=== PATIENT | female | born 1965 | race Caucasian/White ===

== ENCOUNTER 2017-06-15 10:33 | Outpatient (CLI) | payer BC | END 2017-06-15 10:34 | disposition home or self-care (01) | LOC: BICRAD 10:33 | PROVIDERS: ATTEND Family Medicine | DX: R06.02 Shortness of breath (principal) | CPT/HCPCS: 71046 ==

== ENCOUNTER 2017-11-10 13:35 | Outpatient (CLI) | payer BC | END 2017-11-10 13:36 | disposition home or self-care (01) | LOC: BICULT 13:35 | PROVIDERS: ATTEND Family Medicine | DX: R22.1 Localized swelling, mass and lump, neck (principal) | CPT/HCPCS: 36415; 76536; 80053; 80061 ==

== ENCOUNTER 2018-03-01 08:08 | Outpatient (CLI) | payer BC | END 2018-03-01 08:09 | disposition home or self-care (01) | LOC: BICMAMMO 08:08 | PROVIDERS: ATTEND Family Medicine | DX: Z12.31 Encounter for screening mammogram for malignant neoplasm of breast (principal); Z80.3 Family history of malignant neoplasm of breast | CPT/HCPCS: 77063; 77067 ==

== ENCOUNTER 2018-04-21 13:32 | Outpatient (CLI) | payer BC ==
--- NOTE | 2018-04-21 15:37 | RAD ---
PA AND LATERAL VIEWS OF CHEST: Date: 04/21/18 HISTORY: Acute bronchitis. FINDINGS: The heart size is normal. The lungs are well expanded without focal areas of consolidation, pneumotho rax, vicky pulmonary edema, or pleural effusions. There is elevation of the right hemidiaphragm. Ther e are degenerative changes in the spine. IMPRESSION: No radiographic evidence of acute cardiopulmonary process. POS: [facility]
== END 2018-04-21 13:33 | disposition home or self-care (01) ==
LOC: BICRAD 13:32
PROVIDERS: ATTEND Family Medicine
DX: J20.9 Acute bronchitis, unspecified (principal)
CPT/HCPCS: 36415; 71046; 85025; 86710

== ENCOUNTER 2019-02-28 08:57 | Outpatient (CLI) | payer BC ==
--- NOTE | 2019-02-28 09:29 | RAD ---
KUB INDICATION: Hematuria with low back pain COMPARISON: None FINDINGS: Bowel gas: Nonspecific but without overt appearance of obstruction. Lung bases: Clear. Additional findings: There are small phleboliths within the lower pelvis. No suspicious calcification is evident. Osseous structures: No acute osseous abnormality is demonstrated. IMPRESSION: 1. No acute abnormality.
== END 2019-02-28 08:58 | disposition home or self-care (01) ==
LOC: BICRAD 08:57
PROVIDERS: ATTEND Family Medicine
DX: R31.9 Hematuria, unspecified (principal)
CPT/HCPCS: 74018

== ENCOUNTER 2019-03-03 14:05 | Outpatient (CLI) | payer BC ==
--- NOTE | 2019-03-03 15:49 | MMO ---
Bilateral MAMMO Bilat Screen [facility]. CLINICAL HISTORY: Patient is 54 years old and is seen for screening. The patient has the following family history of breast cancer: maternal aunt, malignant (generic). The patient has no personal history of cancer. The patient has a history of right Excisional Biopsy in 2016 - benign. VIEWS: The views performed were: bilateral craniocaudal with tomosynthesis and bilateral mediolateral oblique with tomosynthesis. FILMS COMPARED: The present examination has been compared to prior imaging studies performed at [facility] on 11/19/2015, 08/13/2016, 02/05/2017 and 03/01/2018. This study has been interpreted with the assistance of computer-aided detection. MAMMOGRAM FINDINGS: The breasts are heterogeneously dense, which could obscure a lesion on mammography. There is a stable post-surgical scar seen in the right breast. There are no suspicious masses, suspicious calcifications, or new areas of architectural distortion. IMPRESSION: THERE IS NO MAMMOGRAPHIC EVIDENCE OF MALIGNANCY. A ROUTINE FOLLOW-UP MAMMOGRAM IN 1 YEAR IS RECOMMENDED. THE RESULTS OF THIS EXAM WERE SENT TO THE PATIENT. ACR BI-RADS Category 2 - Benign finding MAMMOGRAPHY NOTE: 1. A negative mammogram report should not delay a biopsy if a dominant of clinically suspicious mass is present. 2. Approximately 10% to 15% of breast cancers are not detected by mammography. 3. Adenosis and dense breasts may obscure an underlying neoplasm. Reported by: DELORES BOYCE MD Electonically Signed: [id number]
== END 2019-03-03 14:06 | disposition home or self-care (01) ==
LOC: BICMAMMO 14:05
PROVIDERS: ATTEND Family Medicine
DX: Z12.31 Encounter for screening mammogram for malignant neoplasm of breast (principal)
CPT/HCPCS: 77063; 77067

== ENCOUNTER 2021-04-23 08:31 | Outpatient (CLI) | payer BC | END 2021-04-23 08:32 | disposition home or self-care (01) | LOC: BICMAMMO 08:31 | PROVIDERS: ATTEND Family Medicine | DX: Z12.31 Encounter for screening mammogram for malignant neoplasm of breast (principal); Z91.89 Other specified personal risk factors, not elsewhere classified; Z80.3 Family history of malignant neoplasm of breast | CPT/HCPCS: 77063; 77067 ==

== ENCOUNTER 2022-06-06 07:33 | Outpatient (CLI) | payer BC | END 2022-06-06 07:34 | disposition home or self-care (01) | LOC: SCSMRI 07:33 | PROVIDERS: ATTEND Specialist | DX: M47.24 Other spondylosis with radiculopathy, thoracic region (principal); M17.11 Unilateral primary osteoarthritis, right knee; M25.461 Effusion, right knee; M51.14 Intervertebral disc disorders with radiculopathy, thoracic region; M48.04 Spinal stenosis, thoracic region | CPT/HCPCS: 72146 ==

== ENCOUNTER 2023-09-29 11:16 | Outpatient (CLI) | payer BC | END 2023-09-29 11:17 | disposition home or self-care (01) | LOC: BICMAMMO 11:16 | PROVIDERS: ATTEND Family Medicine | DX: Z12.31 Encounter for screening mammogram for malignant neoplasm of breast (principal); N64.89 Other specified disorders of breast; Z80.3 Family history of malignant neoplasm of breast; Z91.89 Other specified personal risk factors, not elsewhere classified | CPT/HCPCS: 77063; 77067 ==